=== PATIENT | male | born 1955 | race Two or more races ===

== ENCOUNTER 2024-04-28 23:36 | Inpatient (IN) | payer MEDICARE, MEDICAID, SELFPAY ==
[2024-04-28 23:37] VITALS: BMI 35.4
[2024-04-28 23:56] VITALS: BP 162/79; PULSE 98; RESP 18; TEMP 37.1; O2SAT 97
[2024-04-29] VITALS (27 sets, daily range): BP systolic 72–134; BP diastolic 45–86; PULSE 70–110; RESP 10–27; TEMP 36.9–38.3; O2SAT 95–100; BMI 35.4
--- NOTE | 2024-04-29 00:45 | PD.EDRME ---
Rapid Medical Screening Exam RME Arrival date/time: 04/28/24 23:36 69-year-old male reports with complaints of abdominal pain nausea vomiting and rectal bleeding that began suddenly this evening Chief Complaint: Dizziness Time Seen by Provider: 04/28/24 23:43 Vital signs: Vital Signs Temperature 98.8 F 04/28/24 23:56 Pulse Rate 98 04/28/24 23:56 Respiratory Rate 18 04/28/24 23:56 Blood Pressure 162/79 H 04/28/24 23:56 Pulse Oximetry (%) 97 04/28/24 23:56 Oxygen Delivery Method Room Air 04/28/24 23:56
[2024-04-29 01:18] LABS: Collection Type, Urine Clean Catch
[2024-04-29 01:21] LABS: Basophils % (Auto) 0 % (0-2.5); Eosinophils # (Auto) 0.1 Thou/mm3 (0.0-0.5); Eosinophils % (Auto) 0 % (0-10); Hematocrit 41.6 % (41.0-53.0); Hemoglobin 14.1 g/dL (13.5-16.0); Immature Granulocytes % (Auto) 0 % (0-0); Immature Granulocytes Auto 0.05 Thou/mm3 (0.00-0.00); Lymphocytes # (Auto) 0.6 Thou/mm3 (1.0-4.8); Lymphocytes % (Auto) 5 % (10-50); Mean Corpuscular HGB Conc 33.9 g/dl (31.0-37.0); Mean Corpuscular Hemoglobin 33.6 pg (25.0-35.0); Mean Corpuscular Volume 99 fL (80-100); Monocytes # (Auto) 0.8 Thou/mm3 (0.0-0.8); Monocytes % (Auto) 7 % (0-12); Neutrophils # (Auto) 10.7 Thou/mm3 (1.8-7.7); Neutrophils % (Auto) 88 % (37-80); Nucleated Red Blood Cell % 0 /100 WBC (0); Platelet Count 140 Thou/mm3 (140-440); RDW Standard Deviation 45.4 fL (35.1-43.9); White Blood Count 12.2 Thou/mm3 (3.8-10.6)
[2024-04-29 01:40] LABS: Bacteria,Urine Rare; Bilirubin,Urine Negative (Negative); Blood,Urine Trace (Negative); Budding Yeast,Urine Present; Clarity,Urine Turbid (Clear/Hazy); Color,Urine Yellow (Lt Yel-Yel); Glucose, Urine Negative (Negative); Hyaline Casts,Urine < 1 /hpf (0-1); Ketones,Urine Negative (Negative); Leukocyte Esterase,Urine Positive (Negative); Nitrite,Urine Negative (Negative); Protein,Urine 1+ (Neg - Trace); RBC,Urine 14 /hpf (0-3); Specific Gravity,Urine 1.016 (1.001-1.035); Squamous Epithelial Cell,Urine 1 /hpf (0-5); Urobilinogen,Urine Negative mg/dL (0.0-1.0); WBC,Urine 737 /hpf (0-5)
[2024-04-29 01:41] LABS: Culture Indicated,Urine Yes
[2024-04-29 01:42] LABS: Alanine Aminotransferase 29 U/L (10-49); Albumin, Serum 4.7 gm/dL (3.4-4.8); Albumin/Globulin Ratio 1.7 (1.2-2.2); Alkaline Phosphatase 117 U/L (46-116); Anion Gap 11 (7-16); Aspartate Amino Transferase 21 U/L (0-34); BUN/Creatinine Ratio 21 Ratio (12-20); Bilirubin,Total 0.4 mg/dL (0.3-1.2); Blood Urea Nitrogen 29 mg/dL (9-23); Calcium 9.3 mg/dL (8.3-10.6); Calcium (Corrected) 9.3 mg/dL (8.5-10.1); Carbon Dioxide 21.8 mMol/L (20.0-31.0); Chloride 107 mMol/L (98-107); Creatinine (Component) 1.4 mg/dL (0.6-1.3); Estimated Creatinine Clearance 45.5 mL/min (>60); Globulin 2.8 gm/dL (2.3-3.5); Glucose 135 mg/dL (74-106); Lipase 42 U/L (12-53); Osmolality,Calculated 287 (275-295); Potassium 4.6 mMol/L (3.4-5.1); Sodium 140 mMol/L (136-145); Total Protein 7.5 gm/dL (5.7-8.2); eGFR 54 See Note
--- NOTE | 2024-04-29 02:47 | PD.EDDIZZY ---
ED Dizzyness RME/HPI General Chief Complaint: Dizziness Stated Complaint: DIZZINESS/ CHILLS X 1HOUR Time Seen by Provider: 04/28/24 23:43 Arrival date/time: 04/28/24 23:36 RME / HPI RME / HPI Narrative: 04/28/24 23:36 69-year-old male reports with complaints of abdominal pain nausea vomiting and rectal bleeding that began suddenly this evening Dr. Salazar?s Main ED Evaluation: 69yo male with a history of HTN, BPH presents to the ED for complaints of dizziness, lightheadedness, and shakiness. Patient states he was laying down when he started to feel shaky, reporting when he got up to use the restroom, he began feeling dizzy and lightheaded. He ambulates with a walker. Patient states he continued to feel dizzy and lightheaded when he was walking back to bed, so he came in for evaluation. He notes having 5 bowel movements prior to coming in, stating he noticed red streaks when wiping (has a history of hemorrhoids). He denies any sweating, cough, fever, chills, vision changes, abdominal pain, bloody/black stools, shortness of breath, chest pain or any other associated symptoms. Denies any tobacco, alcohol or illicit drug use. No known allergies. Related Data Home Medications ?Medication ?Instructions ?Recorded ?Confirmed carvedilol 3.125 mg tablet 3.125 mg PO BID 07/11/22 04/29/24 tamsulosin 0.4 mg capsule 0.8 mg PO DAILY 07/11/22 04/29/24 chlorthalidone 25 mg tablet 25 mg PO QDAY 12/25/22 04/29/24 lisinopril 20 mg tablet 20 mg PO QDAY 06/25/23 04/29/24 Allergies Allergy/AdvReac Type Severity Reaction Status Date / Time No Known Allergies Allergy Verified 09/28/23 14:42 Review of Systems Review of Systems Systems Reviewed: All systems reviewed, normal except as documented Past Medical History Past Medical History NEUROLOGIC: Negative Neurological Disorders or Seizures CARDIAC: Positive Hypertension; Negative Cardiac Disorders or Congestive Heart Failure RESPIRATORY: Negative Chronic Obstructive Pulmonary Disease (COPD) or Asthma GASTROINTESTINAL: Negative Gastrointestinal Disorders GENITOURINARY: Positive Genitourinary Disorders and Benign Prostatic Hyperplasia; Negative Renal Disease MUSCULOSKELETAL: Negative Musculoskeletal Disorders ENDOCRINE: Negative Endocrine Disorders, Diabetes Mellitus Type 1 or Diabetes Mellitus Type 2 HEMATOLOGIC: Negative Blood Disorders or Sickle Cell Disease OTHER HISTORY: Negative Down Syndrome, Developmental Delay, Blood Transfusions or Anesthesia Reactions Surgical History SURGICAL: Positive Transurethral Resection; Negative Cardiac Surgery, Endocrine Surgery, Thyroidectomy, Ear Surgery, Eye Surgery, Nose Surgery, Abdominal Surgery, Joint Replacement or Neurologic Surgery Social History SMOKING STATUS: Never smoker ED Exam Narrative Physical exam: GENERAL APPEARANCE: alert and oriented x 4, well-developed, well-nourished, no acute distress VITALS: All vitals were reviewed and the pulse ox is 98% on room air, which is normal according to my interpretation. HEENT: Normocephalic, atraumatic; pupils equal, round, reactive to light; EOMI; mucous membranes pink, moist; oropharynx clear NECK: Supple LUNGS: CTABL; no wheezes, no rales, no rhonchi HEART: Tachycardic, regular rhythm; normal S1, S2; no murmurs ABDOMEN: non distended; normal BS; soft, no tenderness, no guarding, no rebound; no masses, no organomegaly, no hernia BACK: no CVA tenderness EXTREMITIES: atraumatic; no edema NEUROLOGIC: awake; alert and oriented x4; cranial nerves II-XII grossly intact; no focal sensory or motor deficits PSYCHIATRIC: appropriate mood and affect SKIN: hot to touch, dry, normal color; no rashes Course Course Course Narrative: Nurse notes the patient's guaiac stool is positive. 0335: Sepsis alert initiated. Orders made at this time are congruent with ED Adult Sepsis Order List. Re-evaluation is to be completed. CXR is ordered for determining the etiology of fever. 0345: NS IVF started. NS IVF are still being completed at the time of admission. Quality Measures Possible source: pulmonary and genitourinary Blood cultures ordered: yes Antibiotic ordered: Yes Pertinent labs: 04/29/24 04/29/24 01:12 01:35 Lactic Acid 2.1 H mMol/L (0.4-2.0) Procalcitonin 0.22 ng/ml (0.0-0.49) sepsis Orders Category Date Time Status Bedside COVID-19 Antigen Test NOW Care 04/29/24 03:31 Active Bedside Influenza A&B Antigen Test NOW Care 04/29/24 03:[address] Screening NOW Care 04/29/24 00:42 Completed Buffer Machine STAT Care 04/29/24 03:35 Active Continuous Pulse Oximetry STAT Care 04/29/24 03:35 Completed EKG (ED ONLY) *Do not use* NOW Care 04/28/24 23:56 Completed Insert IV NOW Care 04/29/24 03:35 Active NPO STAT Care 04/29/24 03:35 Active Occult Blood,Stool (Nursing) ONCE Care 04/29/24 00:45 Active Orthostatic Vitals NOW Care 04/29/24 03:31 Active Strict Intake and Output Routine Care 04/29/24 03:35 Ordered EKG (ED Only) Stat Exams 04/28/24 23:56 Ordered XR chest 1V portable Stat Exams 04/29/24 03:38 Taken B-Type Natriuretic Peptide Stat Lab 04/29/24 01:08 Completed Blood Culture (Lab) Stat Lab 04/29/24 01:12 Received CBC Stat Lab 04/29/24 01:08 Completed CMP [Comprehensive Metabolic Panel] Stat Lab 04/29/24 01:12 Completed LDH (Lactate Dehydrogenase) Stat Lab 04/29/24 01:12 Completed Lactate (Lactic Acid) Stat Lab 04/29/24 01:35 Results Lipase Stat Lab 04/29/24 01:12 Completed Magnesium Stat Lab 04/29/24 01:12 Completed Partial Thromboplastin Time Stat Lab 04/29/24 01:08 Completed Phosphorous Stat Lab 04/29/24 01:12 Completed Procalcitonin Stat Lab 04/29/24 01:12 Completed Prothrombin Time with INR Stat Lab 04/29/24 01:08 Completed Troponin I Stat Lab 04/29/24 01:12 Completed UA, C/S IF [Urinalysis, C/S if Indicated] Stat Lab 04/29/24 00:57 Completed Urinalysis Stat Lab 04/29/24 03:35 Ordered Urine Culture Stat Lab 04/29/24 00:57 Received Acetaminophen Tab [Tylenol ES Tab] Med 04/29/24 03:38 Discontinued 1,000 mg PO X1 ONE Ibuprofen Tab [Motrin Tab] Med 04/29/24 03:38 Discontinued 600 mg PO X1 ONE Oseltamivir [Tamiflu] Med 04/29/24 04:22 Discontinued 75 mg PO X1 ONE Sodium Chloride 0.9% 1000 ml [Ns] 1,570 ml Med 04/29/24 03:34 Discontinued IV 1,570 mls/hr cefTRIAXone [Rocephin] 1,000 mg Med 04/29/24 03:34 Discontinued SODIUM CHLORIDE 0.9% (Popper) [Ns 0.9% (P)] 50 ml IV X1 Vital Signs Vital signs: Vital Signs Temperature 98.8 F 04/28/24 23:56 Pulse Rate 98 04/28/24 23:56 Respiratory Rate 18 04/28/24 23:56 Blood Pressure 162/79 H 04/28/24 23:56 Pulse Oximetry (%) 97 04/28/24 23:56 Oxygen Delivery Method Room Air 04/28/24 23:56 Dizziness MDM Narrative MDM Narrative:: Scribe Attestation: 04/29/24 Kelly Prasad am scribing for and in the presence of Dr. Salazar. Patient data External records reviewed:: [facility] previous records (Per chart review, patient was admitted here on 07/11/22 for BLE edema.) Clinical information provided by:: patient Social determinants that could affect healthcare access:: none Patient has the following chronic illnesses:: HTN, BPH How is presenting disease/condition affected by chronic disease/condition?: uneffected by Evaluation data The following diagnostics were reviewed and interpreted by me:: lab results and radiology exam(s) Lab and/or radiology exams considered but not ordered:: none Interpretation Summary: WBC count is elevated at 12.2, HnH is normal, Platelets are normal, BUN is elevated at 29, Creatinine is slightly elevated at 1.4, Glucose is 135, Lactic Acid is 2.1, Lipase is normal, UA shows a pH of 8.0, 1+ protein, 14 RBCs, and 737 WBCs, Bedside Influenza A and B are positive, according to my interpretation. CXR shows normal cardiac silhouette, normal sharp diaphragmatic edge, no infiltrates, normal costophrenic angles, according to my interpretation. EKG done at 0001, NSR, rate of 93, normal axis, no ectopy, no acute ischemia, according to my interpretation. Medications / Prescriptions Medications or Prescriptions considered but not ordered:: none Medication administrations:: Medication Administration History Discontinued Medications Acetaminophen (Acetaminophen 500 Mg Tablet) 1,000 mg PO X1 ONE Stop: 04/29/24 03:39 Last Admin: 04/29/24 03:46 Dose: 1,000 mg Documented By: EMILIE Sodium Chloride (Ns) 1,570 mls @ 1,570 mls/hr 30 ml/kg infuse over 60 min (1570 ml) IV .Q1H ONE Stop: 04/29/24 04:33 Last Admin: 04/29/24 03:45 Dose: 1,570 mls/hr Documented By: TC Ceftriaxone Sodium 1,000 mg/ (Sodium Chloride) 50 mls @ 100 mls/hr IV X1 ONE Stop: 04/29/24 04:03 Last Infusion: 04/29/24 04:18 Dose: Infused Documented By: Admin: 04/29/24 03:46 Dose: 100 mls/hr Documented By: EMLIIE Ibuprofen (Ibuprofen Tab 600 Mg Tablet) 600 mg PO X1 ONE Stop: 04/29/24 03:39 Last Admin: 04/29/24 03:46 Dose: 600 mg Documented By: TC Oseltamivir Phosphate (Oseltamivir 75 Mg Capsule) 75 mg PO X1 ONE Stop: 04/29/24 04:23 see above, if any Consultations Consultation(s) initiated? (list below): Yes Consultation #1 (Physician, Specialty, Details): Discussed case with [Dr. Leslie, attending Dr. Gonzalez] from Hospitalist service regarding admission. Discussed patients ED course, exam findings, labs, and radiology results. The Hospitalist [agrees] to accept the patient for admission. Time: 04:33 Diagnosis Dizziness Differential Diagnosis: other (UTI, sepsis, pneumonia, cellulitis, viral illness) Most likely diagnosis given after review of the tests above:: see below Admission Indicated Admission indicated?: indicated Admission Request Was there a request for admission?: Yes Admission Attestation Admission request attestation: Discussed case with [] from Hospitalist service regarding admission. Discussed patients ED course, exam findings, labs, and radiology results. The Hospitalist [agrees,declines] to accept the patient for admission. Disposition Plan Disposition Plan: Admit Critical Care Time Critical Care Time Critical Care Time: Yes Total Critical Care Time (min.): 40 Attestation: The high probability of sudden, clinically significant deterioration in the patient?s condition required the highest level of my preparedness to intervene urgently. The services I provided to this patient were to treat and/or prevent clinically significant deterioration. Services included the following: chart data review, reviewing nursing notes and/or old charts, documentation time, networks software consultant collaboration regarding findings and treatment options, medication orders and management, direct patient care, vital sign assessments and ordering, interpreting and reviewing diagnostic studies and lab tests. Aggregate critical care time includes only time during which I was engaged in work directly related to the patient?s care, as described above, whether at bedside or elsewhere in the Emergency Department. It did not include time spent performing other reported procedures or the services of residents, students, nurses or physician assistants. Discharge Plan Plan Patient Disposition: Admit Acute Care w/in Hospital Prescriptions/Referrals Prescriptions/Med Rec: No Action chlorthalidone 25 mg tablet 25 mg PO QDAY lisinopril 20 mg tablet 20 mg PO QDAY carvedilol 3.125 mg tablet 3.125 mg PO BID Patient Comments: TAKE 1 TABLET BY MOUTH TWICE DAILY tamsulosin 0.4 mg capsule 0.8 mg PO DAILY Patient Comments: TAKE 2 CAPSULES BY MOUTH ONCE DAILY Referrals: Daisha Benavidez PA-C [Primary Care Provider] - In 1 week Problem List Clinical Impression: Severe sepsis, Dehydration, Influenza A, Influenza B, UTI (urinary tract infection) Patient/Caregiver Discharge Instructions Print Language: Maltese Stand Alone Forms: Francesca Award Info., Patient Portal Info Letter
--- NOTE | 2024-04-29 03:38 | XR_ITS ---
Examination: AP chest single view Technique one AP portable upright chest single view Exam date and time: April 29, 2024 0339 hrs. Indications: Sepsis protocol Findings: Early pneumonia right base Accentuation bronchovascular markings. Normal heart size Prominent osteopenia Impression: Bronchitis pattern Early pneumonia right base
[2024-04-29] MEDS: SODIUM CHLORIDE 0.9% 1570 ML IV (03:45)
[2024-04-29] MEDS: cefTRIAXone 1,000 MG in SODIUM CHLORIDE 0.9% (Popper) 50 ML 100 MG IV (03:46)
[2024-04-29] MEDS: IBUPROFEN TAB 600 MG TABLET PO (03:46)
[2024-04-29] MEDS: ACETAMINOPHEN 500 MG TABLET 1000 MG PO (03:46)
[2024-04-29 03:52] LABS: Lactate (Lactic Acid) 2.1 mMol/L (0.4-2.0)
[2024-04-29 04:02] LABS: Partial Thromboplastin Time 28.8 Seconds (22.0-36.0); Prothrombin Time 10.8 Seconds (9.0-12.2)
[2024-04-29 04:16] LABS: B-Type Natriuretic Peptide 39 pg/mL (0-100)
[2024-04-29 04:26] LABS: LDH (Lactate Dehydrogenase) 179 U/L (120-246); Magnesium 1.9 mg/dL (1.6-2.6); Phosphorous 2.1 mg/dL (2.4-5.1); Procalcitonin 0.22 ng/ml (0.0-0.49); Troponin I < 0.002 ng/mL (0.0-0.045)
[2024-04-29] MEDS: OSELTAMIVIR 75 MG CAPSULE PO (04:52)
--- NOTE | 2024-04-29 05:18 | XR_ITS ---
Examination: CT abdomen and pelvis without contrast. Coronal 3-D reconstructions. Sagittal 2-D reconstructions. Date and time of exam:April 2024 at 0061 hrs. Indications: Urinary tract infections with fever chills abdominal pain today CTDI: vol (mGy): 11.3 DLP: (mGycm): 647 Technique: Axial images of the abdomen have been obtained, 3 mm slice thickness Intravenous contrast material has not been administered. Low dose protocols were performed. One or more of the following dose reduction techniques were used; automated exposure control, adjustment of the mA and/or KV according to patient size, use of iterative reconstruction technique. Findings: Stable 15 mm cyst lower right lobe liver No gallstones Spleen is not enlarged. No pancreatic mass. Mild to moderate bilateral renal parenchymal scar formation with perinephric stranding. No renal or ureteral calculi, no hydronephrosis Abdominal aortic calcification, the aorta is not enlarged Normal appendix The entire colon shows mild wall thickening Moderate TURP defect at the base of the prostate, transverse prostate dimension 4.2 cm Small fat-containing inguinal hernias Severe osteopenia Impression: Mild to moderate bilateral renal parenchymal scar formation Bilateral perinephric stranding consider urinary tract infection No renal or ureteral calculi, no hydronephrosis Mild diffuse nonspecific colitis pattern
--- NOTE | 2024-04-29 05:19 | PD.RESHP ---
Documentation for date of: 04/29/24 [facility] History of Present Illness History of present illness: Nixon is a 69 y/o male with past medical history of hypertension, BPH (status post cystoscopy and biopsy in 2021) who comes for evaluation of fever and chills, onset 11 PM which awakened him from sleep. Patient reports that he was sleeping and was awakened to fever and chills at around 11 PM and he did not take anything for his symptoms to improve. Says he has never had the symptoms before. He does note that he has gotten UTIs before in the past, however says that he is not experiencing any urinary symptoms at this time. Denies having any sick contacts in the house or traveling anywhere recently. He does say that he has been having a dry cough. He also says that he has gotten the flu shot this year. Denies any shortness of breath or chest pain at this time. He also denies feeling of headache or bodyaches. Denies seeing blood in his urine. He says he sees Dr. Bruce urology but has not seen him in years and is supposed to have his follow-up appointment in a couple months. He says that he does not feel like as if he has the flu. She denies any back pain at this time. Says he takes medicine for his BPH. Denies using catheter at home. He sees a ground school instructor in [place], however does not know the name. No other complaints this time ED course: He arrived to the ED with a temperature of 98.8 (reaching up to 100.9) heart rate of 98, blood pressure of 107/79, respiratory of 18, saturating 97% on room air. He was worked up was found to have a sodium of 140, potassium of 4.6, bicarb of 22, BUN/creatinine of 29 and 1.4 respectively, glucose of 135, white count of 12.2, hemoglobin of 14.1, lactate of 2.1, troponin x 1 negative, magnesium of 1.9, phosphorus of 2.1, AST ALT 21 and 29 respectively. Urinalysis showed 14 RBCs, 737 white cells, yeast and pH of 8. Chest x-ray was unremarkable for pneumonia. He tested positive for influenza A&B. He was given Rocephin x 1, 1.5 L bolus of NS, Tylenol 1 g, ibuprofen 600 mg, Tamiflu 75 mg. Medicine was consulted and patient was made to floors Past medical history: As above Surgical history: Cystoscopy and prostate biopsy Allergies: No known allergies Meds: Coreg 3.125 twice daily, chlorthalidone 25 mg, lisinopril 20 mg, Flomax 0.8 mg a day Family history: Denies family history of prostate cancer, however does confirm family history of heart attack heart disease and diabetes. No stroke history in family Social history: Lives in [place], works in the [employer] for about 40 years. Lives with his 2 sons and his . Is never been a heavy drinker, denies smoking history, and denies oral or IV drug use. Does not work currently. Does not exercise much. No recent travel. Review of Systems Review of Systems Narrative Review of Systems: Constitutional: Positive fever, positive chills, no fatigue, weakness, weight loss HEENT: No eye pain, vision loss, ear pain, hearing loss, dysphagia, Cardiovascular: No chest pain, palpitations, edema, pain with walking Respiratory: positive dry cough, no shortness of breath, wheezing GI: No NVD, abdominal pain, constipation, blood in stool, loss of appetite, heartburn Extremities: No presence of pitting edema MSK: No back pain, joint pain, joint swelling Neuro: No dizziness, numbness, weakness, headaches, seizures, tremors Psych: No anxiety, depression Exam Vital Signs Temp Pulse Resp BP Pulse Ox O2 Del Method 98.9 F 86 20 109/59 L 99 Room Air 04/29/24 04:59 04/29/24 05:00 04/29/24 05:00 04/29/24 05:00 04/29/24 05:00 04/29/24 04:43 Narrative Exam General: AAOx3, NAD, Gabonese-speaking male, obese, pleasant, wearing hat HEENT: Moist mucous membranes, conjunctiva clear, EOMI, PERRLA, Cardiovascular: Possible ejection systolic murmur heard over ADRIANNA radial pulses +2 bilat, RRR Pulmonary: CTAB bilat no cough, no wheezing GI: No tenderness to light or deep palpitation, no guarding, rigidity, does not seem distended, however has big belly : No CVA tenderness appreciated bilaterally Extremities: No presence of trace or pitting edema in lower extremities bilaterally, dorsalis pedis pulses +2 bilaterally Neuro: AAOx3, no focal motor or sensory deficits in the UE or LE bilat Psych: Good judgement, thought and behavio. r cooperative Results: Labs 04/29/24 01:08 04/29/24 01:12 Labs: Short CBC 04/29/24 Range/Units 01:08 WBC 12.2 H (3.8-10.6) Thou/mm3 Hgb 14.1 (13.5-16.0) g/dL Hct 41.6 (41.0-53.0) % Plt Count 140 (140-440) Thou/mm3 BMP 04/29/24 01:12 Sodium 140 Potassium 4.6 Chloride 107 Carbon Dioxide 21.8 BUN 29 H Creatinine 1.4 H Glucose 135 H Calcium 9.3 Cardiac Enzymes 04/29/24 Range/Units 01:12 Troponin I < 0.002 (0.0-0.045) ng/mL Liver Function 04/29/24 Range/Units 01:12 Total Bilirubin 0.4 (0.3-1.2) mg/dL AST 21 (0-34) U/L ALT 29 (10-49) U/L Alkaline Phosphatase 117 H (46-116) U/L Albumin 4.7 (3.4-4.8) gm/dL Urine 04/29/24 Range/Units 00:57 Urine Color Yellow (Lt Yel-Yel) Urine Clarity Turbid A (Clear/Hazy) Urine pH 8.0 H (5.0-7.0) Ur Specific [place] 1.016 (1.001-1.035) Urine Protein 1+ A (Neg - Trace) Urine Glucose (UA) Negative (Negative) Quality Measures Quality Measures sepsis Current suspected stage: sepsis Possible source: pulmonary and genitourinary Blood cultures ordered: yes Antibiotic ordered: Yes Advance care planning discussed with:: patient Medications Home Medications and Allergies Home Medications ?Medication ?Instructions ?Recorded ?Confirmed ?Type carvedilol 3.125 mg tablet 3.125 mg PO BID 07/11/22 04/29/24 History tamsulosin 0.4 mg capsule 0.8 mg PO DAILY 07/11/22 04/29/24 History chlorthalidone 25 mg tablet 25 mg PO QDAY 12/25/22 04/29/24 History lisinopril 20 mg tablet 20 mg PO QDAY 06/25/23 04/29/24 History Allergies Allergy/AdvReac Type Severity Reaction Status Date / Time No Known Allergies Allergy Verified 09/28/23 14:42 Visit Medications Discontinued Medications Acetaminophen (Acetaminophen 500 Mg Tablet) 1,000 mg PO X1 ONE Stop: 04/29/24 03:39 Last Admin: 04/29/24 03:46 Dose: 1,000 mg Sodium Chloride (Ns) 1,570 mls @ 1,570 mls/hr 30 ml/kg infuse over 60 min (1570 ml) IV .Q1H ONE Stop: 04/29/24 04:33 Last Infusion: 04/29/24 04:57 Dose: Infused Ceftriaxone Sodium 1,000 mg/ (Sodium Chloride) 50 mls @ 100 mls/hr IV X1 ONE Stop: 04/29/24 04:03 Last Infusion: 04/29/24 04:18 Dose: Infused Ibuprofen (Ibuprofen Tab 600 Mg Tablet) 600 mg PO X1 ONE Stop: 04/29/24 03:39 Last Admin: 04/29/24 03:46 Dose: 600 mg Oseltamivir Phosphate (Oseltamivir 75 Mg Capsule) 75 mg PO X1 ONE Stop: 04/29/24 04:23 Last Admin: 04/29/24 04:52 Dose: 75 mg Assessment & Plan Plan Assessment Nixon is a 69 y/o male with past medical history of hypertension, BPH (status post cystoscopy and biopsy in 2021) who is admitted for sepsis secondary to influenza pneumonia and UTI. #Sepsis secondary to #Influenza pneumonia #UTI #Lactic acidosis, type A Patient had temperature of 101, white count of 12.2, 2 out of 4 SIRS criteria qSOFA: 0 Influenza A and B+ Urine shows leukocyte esterase, white cells, and budding yeast. Previous urine shows pansensitive proteus We are concerned for possible stone, however UTI is likely related to cystitis with BPH rather than stone Chest x-ray unremarkable for superimposed bacterial infection Plan: ? Rocephin 1 g IV daily ? Tamiflu 30 mg by mouth twice daily ? Trend lactate ? CT abdomen pelvis ? MRSA screen ? Tylenol as needed for fever ? Follow-up urine and blood cultures ? Tylenol for fevers, do not exceed above 3 g in 24-hour period #History of BPH Chronic Plan: ? Resumed Flomax 0.4 mg twice daily ? Strict I's and O's ? Follow-up urine culture #History of hypertension #Hypotension Hypotension related to sepsis Plan: ?Will hold on resuming home blood pressure medicines at this time #Health Maintenance Disposition: MedSurg DVT prophylaxis: Heparin every 12 hours GI prophylaxis: None Diet: Cardiac CODE STATUS: Full Patient seen and care discussed with my attending physician, Dr. Lisa Pandey, PGY-1 Attending Provider Attestation/Addendum I attest that I was physically present for the evaluation, physical examination, lab and imaging review of the patient with the residents. I discussed the case with the residents and agree with the findings and plans of care as documented above. Patient is a 69 years old male with past medical history of hypertension, BPH who presented to the ED with complaint of fever and chills. Patient was sleeping and was awakened by fever and chills around 11 PM and decided to visit the ED. He denies any shortness of breath, chest pain, headache, urinary symptoms, blood in urine. Did not have any abdominal tenderness, costovertebral angle tenderness, added breath sounds on exam. In the ED, his temperature went up to 100.9 ?F, pulse 98, respiratory 27. On labs, he was found to have BUN/creatinine of 29/1.4, WBC 12.2, lactate 2.1, phosphorus 2.1. Urinalysis was done, which showed 14 RBCs, 737 WBCs, positive leukocyte esterase and yeast. He also tested positive for influenza A and B. Chest x-ray did not show any active disease. Sepsis alert was called in the ED, patient received IV fluid bolus, IV Rocephin, Tylenol and Tamiflu. We will admit the patient for management of sepsis secondary to influenza versus UTI. We will start him on IV Rocephin, Tamiflu. We will also continue with IV hydration. Patient did have 14 RBCs in the urine, likely secondary to UTI, we will obtain CT abdomen/pelvis to rule out any renal stones. We will continue with the patient's Flomax. Patient's blood pressure is soft in the ED, we will hold off on antihypertensives for now. Mary Gonzalez MD
[2024-04-29] MEDS: HEPARIN SOD INJ 5000 UNIT/ML VIAL SC ×2 (05:35→20:11)
[2024-04-29 06:25] LABS: Glucose Estimated Average 111 mg/dL (80-131); Hemoglobin A1C 5.5 % Hgb (4.8-6.0)
[2024-04-29 06:33] LABS: Cardiac Risk Estimate 4.9 RATIO (4.0-6.7); Cholesterol 204 mg/dL (132-200); HDL Cholesterol 42 mg/dL (40-60); LDL Cholesterol,Calculated 128 mg/dL (0-130); Thyroid Stimulating Hormone 1.61 uIU/mL (0.55-4.78); Triglycerides 168 mg/dL (30-150)
[2024-04-29] MEDS: SODIUM CHLORIDE 0.9% 500 ML 500 ML 999 ML IV (06:36)
[2024-04-29] MEDS: SODIUM CHLORIDE 0.9% 1000 ML 1,000 ML 85 ML IV ×2 (06:36→20:10)
[2024-04-29 06:53] LABS: Reflex Lactate? Y
--- NOTE | 2024-04-29 08:08 | PC.SS ---
Initial assessment: this is 69 year old male who presents from home. Patient is pending being admitted to the floors at this time. Patient and spouse, Lupe are Lao speaking. Spouse was able to assist with providing information, she confirmed the patient's demographic information. Patient lives at home with spouse and children, assigned sonNixon as the emergency contact. Patient is normally independent with ADL's. Patient utilizes a cane to assist with ambulation. Patient's PCP is Daisha Benavidez. Patient plans to return home upon discharge, family is able to transport at discharge time. No needs identified at this time. financial services associate to follow up on further discharging needs. D/c plan: home Next of kin: sonNixon
[2024-04-29] MEDS: TAMSULOSIN HCL 0.4 MG CAPSULE PO ×2 (09:10→20:11)
--- NOTE | 2024-04-29 12:33 | ESPR_ITS ---
<Statement entered by Lani Jennings MD - 04/29/24 23:58> Patient was seen and examined by me personally. I have directly supervised and reviewed documentation by the team resident and agree with its findings with any exceptions or additional findings as below. Plan of care was discussed with the attending, Dr. Lobato. New overnight admission. Patient seen and examined at bedside this morning in the ED. He was reporting feeling well, and actually denied any dysuria, flank pain, or suprapubic pain. He came to the hospital due to intense chills. He does report a history of difficulty urinating, having small amounts come out at a time. CT abdomen showed bilateral perinephric stranding which is indicative of pyelonephritis. Will continue IV ceftriaxone, blood and urine cultures pending. Patient is on oseltamivir for Influenza A&B positive. However, he does not endorse any respiratory symptoms, and denies cough, sore throat, phelgm, or chest pain. Lani Jennings, PGY-2 Documentation for date of: 04/29/24 Subjective Subjective Interval history: Patient was seen and examined by the bedside. No acute overnight events. Patient is feeling well. Denies chest pain, cough, fever or chills, dysuria. He is afebrile, saturates well on room air. Will continue with antibiotics and will wait for the results of blood and urine cultures. Exam Vital Signs Temp Pulse Resp BP Pulse Ox O2 Del Method 98.7 F 71 18 99/61 99 Room Air 04/29/24 10:22 04/29/24 10:22 04/29/24 10:22 04/29/24 10:22 04/29/24 10:04/29/24 10:22 Narrative Exam Gen: Well-developed and well-nourished. HEENT: NCAT, PERRLA, EOMI, MMM, anicteric conjunctivae. CVS: normal S1 and S2. RRR. No M/R/G. Resp: CTA B/L. No rhonchi, rales, crackles or wheezing. Abd: soft, non-tender, non-distended. BS+ in all 4 quadrants. No CVA tenderness. MSK: Good ROM in BUE & BLE. No edema or rash. Neuro: CN II-XII grossly intact. Strength 5/5 in BUE & BLE. Alert and oriented x3. Psych: appropriate mood and affect. Objective Labs 04/29/24 01:08 04/29/24 01:12 Labs: Laboratory Results - last 24 hr 04/29/24 04/29/24 04/29/24 00:57 01:08 01:12 WBC 12.2 H RBC 4.20 L Hgb 14.1 Hct 41.6 MCV 99 MCH 33.6 MCHC 33.9 RDW Std Deviation 45.4 H Plt Count 140 Neut % (Auto) 88 H Lymph % (Auto) 5 L [place] % (Auto) 7 Eos % (Auto) 0 Baso % (Auto) 0 Neut # (Auto) 10.7 H Lymph # (Auto) 0.6 L [place] # (Auto) 0.8 Eos # (Auto) 0.1 Baso # (Auto) 0.0 Immature Gran # (Auto) 0.05 H Absolute Nucleated RBC 0.00 Immature Gran % 0 Nucleated RBC % 0 PT 10.8 INR 1.0 APTT 28.8 Sodium 140 Potassium 4.6 Chloride 107 Carbon Dioxide 21.8 Anion Gap 11 BUN 29 H Creatinine 1.4 H Estim Creat Clear Calc 45.5 L eGFR 54 L BUN/Creatinine Ratio 21 H Glucose [address] Glu mg/dL 111 Hemoglobin A1c 5.5 Calculated Osmolality 287 Lactic Acid Calcium 9.3 Corrected Calcium 9.3 Phosphorus 2.1 L Magnesium 1.9 Total Bilirubin 0.4 AST 21 ALT 29 Alkaline Phosphatase 117 H Lactate Dehydrogenase 179 Troponin I < 0.002 B-Natriuretic Peptide 39 Total Protein 7.5 Albumin 4.7 Globulin 2.8 Albumin/Globulin Ratio 1.7 Triglycerides 168 H Cholesterol 204 H LDL Cholesterol, Calc 128 HDL Cholesterol 42 Cholesterol/HDL Ratio 4.9 Lipase 42 Procalcitonin 0.22 TSH 1.61 Ur Collection Type Clean Catch Urine Color Yellow Urine Clarity Turbid A Urine pH 8.0 H Ur Specific [employer] 1.016 Urine Protein 1+ A Urine Glucose (UA) Negative Urine Ketones Negative Urine Blood Trace Urine Nitrite Negative Urine Bilirubin Negative Urine Urobilinogen (Auto) Negative Ur Leukocyte Esterase Positive Urine RBC 14 H Urine WBC 737 H Ur Squamous Epith Cells 1 Urine Bacteria Rare Hyaline Casts < 1 Urine Yeast (Budding) Present A Ur Culture Indicated? Yes 04/29/24 04/29/24 01:35 07:01 WBC RBC Hgb Hct MCV MCH MCHC RDW Std Deviation Plt Count Neut % (Auto) Lymph % (Auto) [place] % (Auto) Eos % (Auto) Baso % (Auto) Neut # (Auto) Lymph # (Auto) [place] # (Auto) Eos # (Auto) Baso # (Auto) Immature Gran # (Auto) Absolute Nucleated RBC Immature Gran % Nucleated RBC % PT INR APTT Sodium Potassium Chloride Carbon Dioxide Anion Gap BUN Creatinine Estim Creat Clear Calc eGFR BUN/Creatinine Ratio Glucose Estimated Ave Glu mg/dL Hemoglobin A1c Calculated Osmolality Lactic Acid 2.1 H 2.0 Calcium Corrected Calcium Phosphorus Magnesium Total Bilirubin AST ALT Alkaline Phosphatase Lactate Dehydrogenase Troponin I B-Natriuretic Peptide Total Protein Albumin Globulin Albumin/Globulin Ratio Triglycerides Cholesterol LDL Cholesterol, Calc HDL Cholesterol Cholesterol/HDL Ratio Lipase Procalcitonin TSH Ur Collection Type Urine Color Urine Clarity Urine pH Ur Specific [employer] Urine Protein Urine Glucose (UA) Urine Ketones Urine Blood Urine Nitrite Urine Bilirubin Urine Urobilinogen (Auto) Ur Leukocyte Esterase Urine RBC Urine WBC Ur Squamous Epith Cells Urine Bacteria Hyaline Casts Urine Yeast (Budding) Ur Culture Indicated? Quality Measures Quality Measures sepsis Current suspected stage: sepsis Reason for ruling out sepsis: resolved Possible source: pulmonary and genitourinary Blood cultures ordered: yes Antibiotic ordered: Yes Advance care planning discussed with:: other Assessment & Plan Assessment Current Active Medications: Generic Name Dose Route Start Last Admin Trade Name Freq PRN Reason Stop Dose Admin Acetaminophen 650 mg 04/29/24 05:42 Acetaminophen 325 Mg Tablet PO 05/29/24 05:11 Q6H PRN Fever >100 or pain 1-3 Heparin Sodium (Porcine) 5,000 unit 04/29/24 05:15 04/29/24 05:35 Heparin Sod Inj 5000 Unit/Ml Vial SC 05/13/24 05:14 5,000 unit Q12HR TONI Administration Ceftriaxone Sodium 1,000 mg/ 50 mls @ 100 mls/hr 04/30/24 09:00 Sodium Chloride IV 05/07/24 08:59 QDAY TONI Sodium Chloride 1,000 mls @ 85 mls/hr 04/29/24 05:45 04/29/24 06:36 Ns IV 05/29/24 05:44 85 mls/hr .[id number] TONI Administration Ondansetron HCl 4 mg 04/29/24 05:12 Ondansetron Inj 2 Mg/Ml Inj 2 Ml IV 05/29/24 05:11 Q6H PRN NAUSEA OR VOMITING Protocol Oseltamivir Phosphate 30 mg 04/29/24 21:00 Oseltamivir 30 Mg Capsule PO 05/06/24 20:59 BID TONI Tamsulosin HCl 0.4 mg 04/29/24 09:00 04/29/24 09:10 Tamsulosin Hcl 0.4 Mg Capsule PO 05/29/24 08:59 0.4 mg BID TONI Administration Plan The patient is a 69-year-old male with previous medical history of hypertension and BPH who was admitted due to sepsis secondary to UTI and pneumonia. #Sepsis secondary to UTI, resolved #UTI #Lactic acidosis, type A, resolved Patient had temperature of 101, white count of 12.2, 2 out of 4 SIRS criteria qSOFA: 0 Influenza A and B+ Urine shows leukocyte esterase, white cells, and budding yeast. Previous urine shows pansensitive proteus We are concerned for possible stone, however UTI is likely related to cystitis with BPH rather than stone Chest x-ray unremarkable for superimposed bacterial infection CT abdomen pelvis revealed perinephric stranding, UA was positive for WBC, leukocyte esterase. Plan: ? Rocephin 1 g IV daily ? MRSA screen pending ? Urine and blood cultures pending ? Tylenol for fevers, do not exceed above 3 g in 24-hour period #Influenza infection Positive bedside influenza A and B ? Tamiflu 30 mg by mouth twice daily #SHADE Most likely prerenal in the setting of sepsis. 04/29: Creatinine 1.4, baseline in 2022 0.7. Plan: - maintenance fluids @80 ml/hr - avoid nephrotoxic agents - monitor CMP #History of BPH Chronic condition. Plan: ? Resumed Flomax 0.4 mg twice daily ? Strict I's and O's ? Pending urine culture #History of hypertension #Hypotension, resolved Hypotension related to sepsis Plan: ?Will hold on resuming home blood pressure medicines at this time #Health Maintenance Disposition: MedSurg DVT prophylaxis: Heparin every 12 hours GI prophylaxis: None Diet: Cardiac CODE STATUS: Full Plan of care discussed with attending Dr. Lobato, PGY-[address] Jennings and PGY-[address] Carolina. Madeleine Flowers MD, PGY 1. Attending Provider Attestation/Addendum I have examined the patient, reviewed labs and imaging findings, discussed the case with the resident(s), and reviewed entered orders. I agree with the plan of care as outlined in this note, with these additional summaries/recommendations: Patient seen at bedside. Patient was admitted overnight for sepsis secondary to pyelonephritis and influenza A plus B. Imaging revealed bilateral perinephric fat stranding. Patient received sepsis fluid resuscitation in the emergency department. Evidence of endorgan damage with SHADE. Patient receiving Rocephin and Tamiflu which we will continue. Urine and blood cultures taken and we will follow-up results when available. We will repeat renal panel in a.m. to monitor acute kidney injury. Continue to avoid nephrotoxic agents and renally dose medications. Patient's blood pressure has been somewhat labile and soft throughout admission. We will continue to hold home antihypertensives for now. Lactic acidosis resolved. Patient updated on the plan and in agreement. Repeat hematology and chemistry panel in AM. Dr. Luis Alfredo MD
[2024-04-29] MEDS: OSELTAMIVIR 30 MG CAPSULE PO (20:11)
[2024-04-30] VITALS: BP 109/55; PULSE 81; RESP 20; TEMP 36.6; O2SAT 97
--- NOTE | 2024-04-30 03:11 | PC.NURSE ---
[facility] downtime from [id number].
[2024-04-30 04:00] VITALS: BP 113/91; PULSE 74; RESP 20; TEMP 37.1; O2SAT 97
[2024-04-30 05:25] LABS: Basophils % (Auto) 0 % (0-2.5); Eosinophils # (Auto) 0.1 Thou/mm3 (0.0-0.5); Eosinophils % (Auto) 1 % (0-10); Hematocrit 33.2 % (41.0-53.0); Hemoglobin 11.1 g/dL (13.5-16.0); Immature Granulocytes % (Auto) 0 % (0-0); Immature Granulocytes Auto 0.03 Thou/mm3 (0.00-0.00); Lymphocytes # (Auto) 1.2 Thou/mm3 (1.0-4.8); Lymphocytes % (Auto) 14 % (10-50); Mean Corpuscular HGB Conc 33.4 g/dl (31.0-37.0); Mean Corpuscular Hemoglobin 33.3 pg (25.0-35.0); Mean Corpuscular Volume 100 fL (80-100); Monocytes # (Auto) 0.7 Thou/mm3 (0.0-0.8); Monocytes % (Auto) 9 % (0-12); Neutrophils # (Auto) 6.4 Thou/mm3 (1.8-7.7); Neutrophils % (Auto) 76 % (37-80); Nucleated Red Blood Cell % 0 /100 WBC (0); Platelet Count 128 Thou/mm3 (140-440); Red Blood Count 3.33 Miln/mm3 (4.50-5.90); White Blood Count 8.4 Thou/mm3 (3.8-10.6)
[2024-04-30 05:48] LABS: Partial Thromboplastin Time 33.7 Seconds (22.0-36.0); Prothrombin Time 10.9 Seconds (9.0-12.2)
[2024-04-30 06:31] LABS: Alanine Aminotransferase 16 U/L (10-49); Albumin, Serum 3.4 gm/dL (3.4-4.8); Albumin/Globulin Ratio 1.5 (1.2-2.2); Alkaline Phosphatase 74 U/L (46-116); Anion Gap 9 (7-16); Aspartate Amino Transferase 13 U/L (0-34); BUN/Creatinine Ratio 22 Ratio (12-20); Bilirubin,Total 0.4 mg/dL (0.3-1.2); Blood Urea Nitrogen 20 mg/dL (9-23); Calcium 8.3 mg/dL (8.3-10.6); Calcium (Corrected) 8.8 mg/dL (8.5-10.1); Carbon Dioxide 22.3 mMol/L (20.0-31.0); Chloride 113 mMol/L (98-107); Creatinine (Component) 0.9 mg/dL (0.6-1.3); Estimated Creatinine Clearance 70.7 mL/min (>60); Globulin 2.3 gm/dL (2.3-3.5); Glucose 93 mg/dL (74-106); Magnesium 1.8 mg/dL (1.6-2.6); Osmolality,Calculated 289 (275-295); Phosphorous 1.9 mg/dL (2.4-5.1); Sodium 144 mMol/L (136-145); Total Protein 5.7 gm/dL (5.7-8.2); eGFR > 60 See Note
[2024-04-30 07:35] VITALS: BP 122/66; PULSE 75; RESP 20; TEMP 36.7; O2SAT 97
[2024-04-30] MEDS: cefTRIAXone 1,000 MG in SODIUM CHLORIDE 0.9% (Popper) 50 ML 100 MG IV (08:56)
[2024-04-30] MEDS: SODIUM CHLORIDE 0.9% 1000 ML 1,000 ML 85 ML IV (08:57)
[2024-04-30] MEDS: OSELTAMIVIR 30 MG CAPSULE PO (09:24)
[2024-04-30] MEDS: TAMSULOSIN HCL 0.4 MG CAPSULE PO ×2 (09:24→20:50)
[2024-04-30] MEDS: HEPARIN SOD INJ 5000 UNIT/ML VIAL SC ×2 (09:24→20:49)
[2024-04-30 11:11] VITALS: BP 143/74; PULSE 78; RESP 18; TEMP 36.7; O2SAT 96
[2024-04-30] MEDS: NAPH,KPH MBDB 1 PACKET (1.5 GM) PO (12:00)
--- NOTE | 2024-04-30 14:37 | PC.SS ---
Rounding note: patient pending urine cultures, receiving tamiflu, possible d/c tomorrow.
--- NOTE | 2024-04-30 15:35 | ESPR_ITS ---
<Statement entered by Lani Jennings MD - 04/30/24 23:51> Patient was seen and examined by me personally. I have directly supervised and reviewed documentation by the team resident and agree with its findings with any exceptions or additional findings as below. Plan of care was discussed with the attending, Dr. Lobato. Patient doing well today, denies symptoms. Pending final urine culture results, currently showing GNR and the patient is on IV ceftriaxone. Will anticipate discharge likely tomorrow with PO antibiotics. Continue daily tamsulosin. Lani Jennings, PGY-2 Documentation for date of: 04/30/24 Subjective Subjective Interval history: Patient was seen and examined by the bedside. No acute overnight events. Patient is feeling well. Denies dysuria, abdominal pain, shortness of breath, cough. Urine culture preliminary grew gram-negative rods, pending speciation and sensitivity. Blood cultures are preliminary negative after 24 hours. Will continue with current antibiotic regimen for now. Anticipate discharge after the final culture results. Exam Vital Signs Temp Pulse Resp BP Pulse Ox O2 Del Method 98.1 F 78 18 143/74 H 96 Room Air 04/30/24 11:11 04/30/24 11:11 04/30/24 11:11 04/30/24 11:11 04/30/24 11:11 04/30/24 11:11 Narrative Exam Gen: Well-developed and well-nourished. HEENT: NCAT, PERRLA, EOMI, MMM, anicteric conjunctivae. CVS: normal S1 and S2. RRR. No M/R/G. Resp: CTA B/L. No rhonchi, rales, crackles or wheezing. Abd: soft, non-tender, non-distended. BS+ in all 4 quadrants. No CVA tenderness. MSK: Good ROM in BUE & BLE. No edema or rash. Neuro: CN II-XII grossly intact. Strength 5/5 in BUE & BLE. Alert and oriented x3. Psych: appropriate mood and affect. Objective Labs 05/01/24 04:12 05/01/24 04:12 Labs: Laboratory Results - last 24 hr 04/30/24 04:43 WBC 8.4 RBC 3.33 L Hgb 11.1 L D Hct 33.2 L MCV 100 MCH 33.3 MCHC 33.4 RDW Std Deviation 47.0 H Plt Count 128 L Neut % (Auto) 76 Lymph % (Auto) 14 [place] % (Auto) 9 Eos % (Auto) 1 Baso % (Auto) 0 Neut # (Auto) 6.4 Lymph # (Auto) 1.2 [place] # (Auto) 0.7 Eos # (Auto) 0.1 Baso # (Auto) 0.0 Immature Gran # (Auto) 0.03 H Absolute Nucleated RBC 0.00 Immature Gran % 0 Nucleated RBC % 0 PT 10.9 INR 1.0 APTT 33.7 Sodium 144 Potassium 4.0 D Chloride 113 H Carbon Dioxide 22.3 Anion Gap 9 BUN 20 Creatinine 0.9 D Estim Creat Clear Calc 70.7 eGFR > 60 BUN/Creatinine Ratio 22 H Glucose 93 Calculated Osmolality 289 Calcium 8.3 Corrected Calcium 8.8 Phosphorus 1.9 L Magnesium 1.8 Total Bilirubin 0.4 AST 13 ALT 16 Alkaline Phosphatase 74 D Total Protein 5.7 Albumin 3.4 D Globulin 2.3 Albumin/Globulin Ratio 1.5 Quality Measures Quality Measures sepsis Current suspected stage: sepsis (resolved) Possible source: pulmonary and genitourinary Blood cultures ordered: yes Antibiotic ordered: Yes Advance care planning discussed with:: other Assessment & Plan Assessment Current Active Medications: Generic Name Dose Route Start Last Admin Trade Name Freq PRN Reason Stop Dose Admin Acetaminophen 650 mg 04/29/24 05:42 Acetaminophen 325 Mg Tablet PO 05/29/24 05:11 Q6H PRN Fever >100 or pain 1-3 Heparin Sodium (Porcine) 5,000 unit 04/29/24 05:15 04/30/24 09:24 Heparin Sod Inj 5000 Unit/Ml Vial SC 05/13/24 05:14 5,000 unit Q12HR TONI Administration Ceftriaxone Sodium 1,000 mg/ 50 mls @ 100 mls/hr 04/30/24 09:00 04/30/24 08:56 Sodium Chloride IV 05/07/24 08:59 100 mls/hr QDAY TONI Administration Sodium Chloride 1,000 mls @ 85 mls/hr 04/29/24 05:45 04/30/24 08:57 Ns IV 05/29/24 05:44 85 mls/hr .[id number] TONI Administration Ondansetron HCl 4 mg 04/29/24 05:12 Ondansetron Inj 2 Mg/Ml Inj 2 Ml IV 05/29/24 05:11 Q6H PRN NAUSEA OR VOMITING Protocol Oseltamivir Phosphate 75 mg 04/30/24 21:00 Oseltamivir 30 Mg Capsule PO 05/07/24 20:59 BID TONI Tamsulosin HCl 0.4 mg 04/29/24 09:00 04/30/24 09:24 Tamsulosin Hcl 0.4 Mg Capsule PO 05/29/24 08:59 0.4 mg BID TONI Administration Plan The patient is a 69-year-old male with previous medical history of hypertension and BPH who was admitted due to sepsis secondary to UTI and pneumonia. #Sepsis secondary to UTI, resolved #UTI #Lactic acidosis, type A, resolved Patient had temperature of 101, white count of 12.2, 2 out of 4 SIRS criteria qSOFA: 0 Influenza A and B+ Urine shows leukocyte esterase, white cells, and budding yeast. Previous urine shows pansensitive proteus We are concerned for possible stone, however UTI is likely related to cystitis with BPH rather than stone Chest x-ray unremarkable for superimposed bacterial infection CT abdomen pelvis revealed perinephric stranding, UA was positive for WBC, leukocyte esterase. Blood cultures preliminary negative. Urine cultures are positive for gram- negative rods, pending sensitivities and speciation. Plan: ? Rocephin 1 g IV daily ? MRSA screen negative ? Tylenol for fevers, do not exceed above 3 g in 24-hour period #Influenza infection Positive bedside influenza A and B ? Tamiflu 75 mg by mouth twice daily #SHADE, improving Most likely prerenal in the setting of sepsis. 04/29: Creatinine 1.4, baseline in 2022 0.7. 04/30 creatinine 0.9, BUN 20, GFR more than 60. Plan: - avoid nephrotoxic agents - monitor CMP #History of BPH Chronic condition. Plan: ? Flomax 0.4 mg twice daily ? Strict I's and O's ? Pending urine culture #History of hypertension #Hypotension, resolved Hypotension related to sepsis Plan: ?Will hold on resuming home blood pressure medicines at this time #Health Maintenance Disposition: MedSurg DVT prophylaxis: Heparin every 12 hours GI prophylaxis: None Diet: Cardiac CODE STATUS: Full Plan of care discussed with attending Dr. Lobato, PGY-[address] Jennings and PGY-[address] Carolina. Madeleine Flowers MD, PGY 1. Attending Provider Attestation/Addendum I have examined the patient, reviewed labs and imaging findings, discussed the case with the resident(s), and reviewed entered orders. I agree with the plan of care as outlined in this note, with these additional summaries/recommendations: Patient seen at bedside. No acute overnight events. Patient was admitted for sepsis secondary to pyelonephritis and influenza A plus B. Imaging revealed bilateral perinephric fat stranding. Patient received sepsis fluid resuscitation in the emergency department. Evidence of endorgan damage with SHADE. Patient receiving Rocephin and Tamiflu which we will continue. Urine cx preliminarily showing gram-negative rods and blood cultures showed no growth at 24 hours. We will await culture results before patient can be safely discharged. Continue IV antibiotics. Acute kidney injury resolving. Continue to avoid nephrotoxic agents and renally dose medications. Patient's blood pressure has been somewhat labile and soft throughout admission. We will reinstitute home antihypertensives as tolerated. Lactic acidosis resolved. Patient updated on the plan and in agreement. Repeat hematology and chemistry panel in AM. Dr. Luis Alfredo MD
[2024-04-30 16:00] VITALS: BP 139/84; PULSE 74; RESP 18; TEMP 36.1; O2SAT 99
[2024-04-30 19:56] VITALS: BP 126/62; PULSE 74; RESP 16; TEMP 36.6; O2SAT 97
[2024-04-30] MEDS: OSELTAMIVIR 30 MG CAPSULE 75 MG PO (20:50)
[2024-05-01] VITALS: BP 132/65; PULSE 74; RESP 18; TEMP 36.3; O2SAT 97
[2024-05-01 04:00] VITALS: BP 129/71; PULSE 79; RESP 18; TEMP 36.8; O2SAT 99
[2024-05-01 05:59] LABS: Basophils % (Auto) 0 % (0-2.5); Eosinophils # (Auto) 0.1 Thou/mm3 (0.0-0.5); Eosinophils % (Auto) 2 % (0-10); Hematocrit 34.3 % (41.0-53.0); Hemoglobin 11.7 g/dL (13.5-16.0); Immature Granulocytes % (Auto) 0 % (0-0); Immature Granulocytes Auto 0.02 Thou/mm3 (0.00-0.00); Lymphocytes # (Auto) 1.2 Thou/mm3 (1.0-4.8); Lymphocytes % (Auto) 16 % (10-50); Mean Corpuscular HGB Conc 34.1 g/dl (31.0-37.0); Mean Corpuscular Hemoglobin 33.2 pg (25.0-35.0); Mean Corpuscular Volume 97 fL (80-100); Monocytes # (Auto) 0.8 Thou/mm3 (0.0-0.8); Monocytes % (Auto) 10 % (0-12); Neutrophils # (Auto) 5.6 Thou/mm3 (1.8-7.7); Neutrophils % (Auto) 72 % (37-80); Nucleated Red Blood Cell % 0 /100 WBC (0); Platelet Count 147 Thou/mm3 (140-440); RDW Standard Deviation 44.5 fL (35.1-43.9); Red Blood Count 3.52 Miln/mm3 (4.50-5.90); White Blood Count 7.8 Thou/mm3 (3.8-10.6)
[2024-05-01 06:31] LABS: Alanine Aminotransferase 15 U/L (10-49); Albumin, Serum 3.7 gm/dL (3.4-4.8); Albumin/Globulin Ratio 1.5 (1.2-2.2); Alkaline Phosphatase 75 U/L (46-116); Anion Gap 9 (7-16); Aspartate Amino Transferase 13 U/L (0-34); BUN/Creatinine Ratio 16 Ratio (12-20); Bilirubin,Total 0.4 mg/dL (0.3-1.2); Blood Urea Nitrogen 13 mg/dL (9-23); Calcium 8.6 mg/dL (8.3-10.6); Calcium (Corrected) 8.8 mg/dL (8.5-10.1); Carbon Dioxide 23.4 mMol/L (20.0-31.0); Chloride 110 mMol/L (98-107); Creatinine (Component) 0.8 mg/dL (0.6-1.3); Estimated Creatinine Clearance 79.6 mL/min (>60); Globulin 2.4 gm/dL (2.3-3.5); Glucose 90 mg/dL (74-106); Osmolality,Calculated 283 (275-295); Potassium 3.8 mMol/L (3.4-5.1); Sodium 142 mMol/L (136-145); Total Protein 6.1 gm/dL (5.7-8.2); eGFR > 60 See Note
[2024-05-01 07:09] VITALS: BP 117/63; PULSE 85; RESP 14; TEMP 36.7; O2SAT 97
[2024-05-01] MEDS: TAMSULOSIN HCL 0.4 MG CAPSULE PO (08:37)
[2024-05-01] MEDS: HEPARIN SOD INJ 5000 UNIT/ML VIAL SC (08:37)
[2024-05-01] MEDS: OSELTAMIVIR 75 MG CAPSULE PO (09:33)
[2024-05-01] MEDS: cefTRIAXone 1,000 MG in SODIUM CHLORIDE 0.9% (Popper) 50 ML 100 MG IV (09:33)
[2024-05-01 11:12] VITALS: BP 130/70; PULSE 79; RESP 16; TEMP 36.3; O2SAT 98
[2024-05-01 12:00] VITALS: BP 126/72; PULSE 85; RESP 18; TEMP 36.4; O2SAT 97
--- NOTE | 2024-05-01 17:10 | ESDS_ITS ---
<Statement entered by Lani Jennings MD - 05/02/24 00:15> Patient was seen and examined by me personally. I have reviewed the below documentation by the team resident and agree with its findings with any exceptions as below. Discharge plan was discussed with the attending, Dr. Lobato. Patient seen doing well this morning, feeling ready to go home. He denied any further symptoms, vitals and labs are stable. Patient was discharged on 11 more days of cephalexin 500 mg QID for Proteus pyelonephritis. He was instructed to continue his home carvedilol and tamsulosin but hold the chlorthalidone and lisinopril due to normal blood pressures the last few days and recent SHADE. Follow up with PCP to resume in the next few weeks. Lani Jennings, PGY-2 Planned Discharge Date 05/01/24 DS: Providers Provider Date of admission: 04/29/24 05:12 Primary care physician: Daisha Benavidez PA-C Admitting Provider: Mary Gonzalez MD Attending Provider on Admission: Isaías Lobato MD Attending Provider on DC: Madeleine Flowers MD Discharging Provider: Madeleine Flowers MD DS: Diagnosis Problem List Completed Was Problem List Reviewed/Reconciled?: Yes Hospital Course Hospital Course Hospital course: The patient is a 69-year-old male with a previous medical history of hypertension, BPH status post cystoscopy and biopsy in 2021 who was brought to the ED with chief complaint of fever and chills and was found to have a complicated UTI. In the ED he was hypotensive, febrile and was found to have mild leukocytosis. He was admitted due to sepsis secondary to complex UTI and influenza infection. He was started on ceftriaxone IV and Tamiflu. His blood culture came back negative, MRSA screen was negative, urine culture grew Proteus mirabilis resistant to tetracycline, nitrofurantoin, TMP/SMX. His symptoms resolved, kidney function improved, throughout his admission he did not have any symptoms of dysuria. Saturates well on room air. He was seen and examined at the bedside and was medically cleared for discharge. Hospital diagnoses: #Sepsis secondary to UTI, resolved #UTI #Lactic acidosis, type A, resolved #Influenza infection #SHADE, improving #History of BPH #History of hypertension #Hypotension, resolved Discharge recommendation: - Please follow-up with your Primary Care Physician in 1-2 weeks - Take Keflex (cephalexin), an antibiotic, for 11 days - In case your condition worsens, come to the Emergency Department or call 911 Per google translate: Recomendaci?n para el edwar: - Realice un seguimiento con shoemaker m?dico de cabecera en 1 o 2 semanas - Mellen Keflex (cefalexina), un antibi?christine, zakia 11 d?as - En lamonte de que shoemaker condici?n empeore, acuda al servicio de urgencias o llame al 911 Plan of care discussed with attending Dr. Lobato, PGY-[address] Jennings and PGY-[address] [place]. Madeleine Flowers MD, PGY 1. Time Spent with Patient Time attestation: Total time spent providing and/or coordinating discharge services: Exam Vital Signs Temp Pulse Resp BP Pulse Ox O2 Del Method 97.6 F 85 18 126/72 97 Room Air 05/01/24 12:00 05/01/24 12:00 05/01/24 12:00 05/01/24 12:00 05/01/24 12:00 05/01/24 12:00 Narrative Exam Gen: Well-developed and well-nourished. HEENT: NCAT, PERRLA, EOMI, MMM, anicteric conjunctivae. CVS: normal S1 and S2. RRR. No M/R/G. Resp: CTA B/L. No rhonchi, rales, crackles or wheezing. Abd: soft, non-tender, non-distended. BS+ in all 4 quadrants. No CVA tenderness. MSK: Good ROM in BUE & BLE. No edema or rash. Neuro: CN II-XII grossly intact. Strength 5/5 in BUE & BLE. Alert and oriented x3. Psych: appropriate mood and affect. Discharge Plan Plan Patient Disposition: HOME (Self Care) Care Plan Goals: Discharge recommendation: - Please follow-up with your Primary Care Physician in 1-2 weeks - Take Keflex (cephalexin), an antibiotic, for 11 days - In case your condition worsens, come to the Emergency Department or call 911 Per google translate: Recomendaci?n para el edwar: - Realice un seguimiento con shoemaker m?dico de cabecera en 1 o 2 semanas - Mellen Keflex (cefalexina), un antibi?christine, zakia 11 d?as - En lamonte de que shoemaker condici?n empeore, acuda al servicio de urgencias o llame al 911 Prescriptions/Referrals Prescriptions/Med Rec: New cephalexin 500 mg capsule 500 mg PO QID MDD 2000 mg 11 Days Qty: 44 0RF Continued carvedilol 3.125 mg tablet 3.125 mg PO QDAY Patient Comments: TAKE 1 TABLET BY MOUTH DAILY tamsulosin 0.4 mg capsule 0.4 mg PO DAILY Patient Comments: TAKE 2 CAPSULES BY MOUTH ONCE DAILY Held chlorthalidone 25 mg tablet 25 mg PO QDAY Hold Instructions: Resume on 05/15/24. Hold until the follow-up with PCP lisinopril 20 mg tablet 20 mg PO QDAY Hold Instructions: Resume on 05/15/24. Hold until the follow-up with PCP Referrals: Daisha Benavidez PA-C [Primary Care Provider] - Patient/Caregiver Discharge Instructions Education Materials: Urinary Tract Infections in Men, Understanding Urinary Tract ... Print Language: [place] Stand Alone Forms: Francesca Award Info., Patient Portal Info Letter Discharge Order Discharge Orders: Discharge (Routine); Ordered 05/01/24 Ordered By: Madeleine Flowers Quality Discharge Quality Measures VTE prophylaxis Attestestation MD Attestation I have examined the patient, reviewed labs and imaging findings, discussed the case with the resident(s), and reviewed entered orders. I agree with the plan of care as outlined in this note. Dr. Luis Alfredo MD
== END 2024-05-01 12:40 | disposition home or self-care (01) | DRG 871 ==
LOC: SERX 04-29 04:39 → SERHOLD 04-29 06:25 → S3NX 04-29 09:48
PROVIDERS: Physician Assistant; Admitting Provider Student in an Organized Health Care Education/Training Program; Emergency Provider Emergency Medicine; PCP Physician Assistant; Visit Provider Student in an Organized Health Care Education/Training Program
DX: A41.89 Other specified sepsis (principal); J10.00 Influenza due to other identified influenza virus with unspecified type of pneumonia; N39.0 Urinary tract infection, site not specified; E87.20 Acidosis, unspecified; K62.5 Hemorrhage of anus and rectum; N17.9 Acute kidney failure, unspecified; N12 Tubulo-interstitial nephritis, not specified as acute or chronic; Z16.29 Resistance to other single specified antibiotic; R65.20 Severe sepsis without septic shock; N40.0 Benign prostatic hyperplasia without lower urinary tract symptoms; I10 Essential (primary) hypertension; Z79.899 Other long term (current) drug therapy
CPT/HCPCS: 36415; 71045; 74176; 80053; 80061; 81001; 83036; 83605; 83615; 83690; 83735; 83880; 84100; 84145; 84443; 84484; 85025; 85610; 85730; 87040; 87077; 87081; 87086; 87186; 87400; 87811; 93005; 96365; 99291; J0696; J1643; J7030; J7040; J7050; A9270

== ENCOUNTER → 2024-08-04 | Outpatient (BNVA) | payer MEDICARE, MEDICAID, SELFPAY | END | disposition home or self-care (01) | PROVIDERS: PCP Physician Assistant; Referring Provider Physician Assistant; Visit Provider Urology | DX: N40.1 Benign prostatic hyperplasia with lower urinary tract symptoms (principal); N13.8 Other obstructive and reflux uropathy; R97.20 Elevated prostate specific antigen [PSA]; I10 Essential (primary) hypertension; E66.9 Obesity, unspecified; Z68.34 Body mass index [BMI] 34.0-34.9, adult | CPT/HCPCS: 81003; 99213; G0463 ==

== ENCOUNTER → 2024-08-04 | Outpatient (CLI) | payer MEDICARE, MEDICAID, SELFPAY ==
[2024-08-07 17:52] LABS: PSA, Free 0.53 ng/mL; PSA, Total 2.2 ng/mL (< OR = 4.0)
== END | disposition home or self-care (01) ==
PROVIDERS: PCP Physician Assistant; Referring Provider Urology; Visit Provider Urology
DX: N40.1 Benign prostatic hyperplasia with lower urinary tract symptoms (principal)
CPT/HCPCS: 36415; 84153; 84154

== ENCOUNTER → 2025-01-20 | Outpatient (BNVA) | payer MEDICARE, MEDICAID, SELFPAY | END | disposition home or self-care (01) | PROVIDERS: PCP Physician Assistant; Referring Provider Physician Assistant; Visit Provider Physician Assistant | DX: N40.1 Benign prostatic hyperplasia with lower urinary tract symptoms (principal); R97.20 Elevated prostate specific antigen [PSA]; I10 Essential (primary) hypertension; E66.9 Obesity, unspecified | CPT/HCPCS: Q3014 ==